=== PATIENT | female | born 1940 | race Caucasian/White ===

== ENCOUNTER → 2016-11-24 | Outpatient (CLI) | payer MEDICARE, OTHER ==
[~2016-11-24] MED LIST: ACETAMINOPHEN650 M1 PO; ADALAT CC PO; ADALATCC; ADVAIR 2501 DISK W/D; ALBUTEROL17 GM INH; ASPIRIN PO; ASPIRINEC PO; AZITHROMYCIN250 MG PO; CECLOR PULVULE250 MG PO; CLONIDINE HCL0.1 MG PO; COLACE PO; COMBIVENT U/D3 M1 INH; DIAZEPAM PO; IPRATR-ALBUTEROL3 ML INH; LIPITOR; LIPITOR PO; LISINOPRIL30 MG PO; LORTAB 10-5001 EACH PO; LORTAB 7.5-5001 TAB PO; MAXZIDE 75/50 T1 TAB; NABUMETONE PO; NEXIUM; NEXIUM PO; NIFEDIPINE ER30 MG PO; NORCO 10/3251 TAB PO; PREDNISONE; PRILOSEC PO; PRINIVIL10 MG PO; PROAIR HFA8.5 GM INH; QVAR7.3 G1 INH; SYMBICORT INH; SYMBICORT80 INH; SYNTHROID; SYNTHROID PO; SYNTHROID25 MCG PO; TEGRETOL PO; TEGRETOL XR PO; THEOPHYLLIN; TRIAMTERENE-HC1 EACH PO
--- NOTE | ~2016-11-24 | XA30 ---
[facility] A Service of [facility] & [facility] RADIOLOGY TEXT RESULTS PATIENT: TIM JASON LOCATION: CIVR : 40 UNIT #: [id number] AGE: [address]: Samir Holland MD SEX: F ORDER DR: [id number] [facility] [address] [place], [place] [address] [id number] O MR#: [id number] Acc #: [id number] NAME: TIM JASON : 1940 SEX: F STUDY DATE/TIME: 11/24/2016 13:13 UNIT: [facility] ROOM: STUDY DESCRIPTION: XA Arthrocentesis Major Joint Attending Physician: Samir Holland M.D. Referring Physician: Samir Holland M.D. Ordering Physician: Samir Holland M.D. Primary Care Physician: Naibla Bynum A.P.R.N. MEDICAL IMAGING REPORT This report is preliminary unless electronic signature is present EXAM Fluoroscopically-guided left hip injection. INDICATIONS Left hip pain. On patient's most recent left hip injection, she was noted to have some of firmness of the overlying soft tissues which made it somewhat difficult to enter the joint space. PROCEDURE The risks, benefits, and alternatives to the procedure were explained to the patient, and signed, informed consent was obtained. She was placed supine on the angiographic table and was prepped and draped in the usual sterile fashion. Time-out was performed as per protocol. Skin and subcutaneous tissues were anesthetized with buffered lidocaine and a 22-gauge spinal need was was advanced in the joint space. Contrast was injected which confirmed location within the joint space. I then instilled a combination of lidocaine, bupivacaine and Depo-Medrol The needle was then removed and manual pressure was applied until hemostasis was obtained. As was noted on the prior study, the patient does have some mild resistance of the soft tissues to the needle as was noted on the prior study. Clinical significance is uncertain. Comparison to the patient's prior MRI results is suggested. Total fluoroscopy time was 0.4 minutes AK was 7 mGy. IMPRESSION Technically successful fluoroscopically guided left hip injection as noted above. Fluoroscopy was used during the procedure and permanent images were saved. Dictated by... Carole Zhang M.D. [facility] A Service of [facility] RADIOLOGY TEXT RESULTS PATIENT: TIM JASON LOCATION: [facility] #: [id number] : 40 UNIT #: [id number] AGE: [address]: Samir Holland MD SEX: F ORDER DR: THIS IS AN ELECTRONICALLY VERIFIED REPORT Carole Zhang M.D. at 11/25/2016 4:59 PM AFF/bd TD: 11/25/2016 13:34 JOB #: [id number] MEDICAL IMAGING REPORT Page 1 of 1 COPY
== END | disposition home or self-care (01) ==
LOC: CIVR 12:45
DX: M25.552 Pain in left hip (principal); M79.9 Soft tissue disorder, unspecified
CPT/HCPCS: 77002; J1030; Q9966